=== PATIENT | male | born 1985 | race American Indian/Alaskan Native ===

== ENCOUNTER 2020-07-06 11:21 | Emergency (ER) | payer OTHER ==
[2020-07-06] MEDS ORDERED: Acetaminophen/HYDROcodone 325-7.5 MG Tab PO STA (11:31)
[2020-07-06] MEDS ORDERED: Ketorolac 60 MG/2 ML SDV IM ONE (11:31)
[2020-07-06] MEDS ORDERED: Morphine 4 MG/ML Syringe IVPUSH ONE (11:32)
[2020-07-06] MEDS ORDERED: Ketorolac 30 MG/ML SDV IVPUSH ONE (11:32)
--- NOTE | 2020-07-06 12:02 | CR ---
INDICATION: Pain and SOB. TECHNIQUE: Upright portable AP image of the chest. COMPARISON: None. FINDINGS: Lungs and pleural spaces clear. Heart, mediastinum and pulmonary vessels normal. No significant osseous abnormality. IMPRESSION: Negative chest. Dictated by Dm Henning MD @ 07/06/2020 12:01:[address] Dm Henning @ Jul 06 2020 12:01PM
--- NOTE | 2020-07-06 12:16 | EDM.PDOC ---
ED HPI GENERAL MEDICAL PROBLEM - General Chief Complaint: General Stated Complaint: INJURY TO RIBS Time Seen by Provider: 07/06/20 11:23 Source of Information: Reports: Patient History Limitations: Reports: No Limitations - History of Present Illness INITIAL COMMENTS - FREE TEXT/NARRATIVE: HISTORY AND PHYSICAL: History of present illness: Patient is a 34-year-old male who presents to the ED today with concern of left- sided rib injury that occurred at about 8 this morning. 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 Patient states that the board got hit and popped up from the ground and hit patient in the left sided rib area. Patient states that he "got the wind knocked out of him "and states that he had approximately a minute of feeling like he could not catch his breath. Patient states that since then, he has pain of his left sided rib area that is worse with movement or taking a big deep breath in. Patient states he has a history of prior broken ribs and states that this does feel similar to when he broke his ribs in the past. Patient denies any head injury or loss of consciousness or any other associative symptoms. Patient denies fever, chills, chest pain, shortness of breath, or cough. Denies headache, neck stiff ness, change in vision, syncope, or near syncope. Denies nausea, vomiting, abdominal pain, diarrhea, constipation, or dysuria. Has not noted any blood in urine or stool. Patient has been eating and drinking appropriately. Review of systems: As per history of present illness and below otherwise all systems reviewed and negative. Past medical history: As per history of present illness and as reviewed below otherwise noncontributory. Surgical history: As per history of present illness and as reviewed below otherwise noncontributory. Social history: See social history for further information Family history: As per history of present illness and as reviewed below otherwise noncontributory. Physical exam: General: Patient is alert, oriented, and in no acute distress. Patient sitting comfortably on exam table. Vitals stable and reviewed by me. HEENT: Atraumatic, normocephalic, pupils equal and reactive bilaterally, negative for conjunctival pallor or scleral icterus, mucous membranes moist, TMs normal bilaterally, throat clear, neck supple, nontender, trachea midline. No drooling or trismus noted. No meningeal signs. No hot potato voice noted. Lungs/chest: Patient has moderate to severe pain to palpation of the left-sided anterior ribs #5 through 9. No crepitus to palpation of this area. No ecchymosis or contusions noted. Otherwise, lungs clear to auscultation, breath sounds equal bilaterally, chest nontender. Heart: S1S2, regular rate and rhythm without overt murmur Abdomen: Soft, nondistended, nontender. Negative for masses or hepatosplenomegaly. Negative for costovertebral tenderness. Pelvis: Stable nontender. Genitourinary: Deferred. Rectal: Deferred. Skin: Intact, warm, dry. No lesions or rashes noted. Extremities: Atraumatic, negative for cords or calf pain. Neurovascular unremarkable. Neuro: Awake, alert, oriented. Cranial nerves II through XII unremarkable. Cerebellum unremarkable. Motor and sensory unremarkable throughout. Exam nonfocal. Notes: Upon arrival to the ED, patient is vitally stable and nontoxic on exam. He does have significant tenderness of his left-sided anterior ribs to palpation on exam, although no indications for contusions noted at this time. Patient does have bilateral lung sounds that are equal. Will obtain initial chest x-ray, basic lab work, and CT chest to assess for rib injury/lung contusions. Mild derangements of CBC unremarkable. Corrected calcium on CMP is 7.5. Chest x-ray is unremarkable. Chest CT is unremarkable. No sign of acute injury or disease. Upon reevaluation of patient, he is more comfortable given therapeutics today in the ED and remains vitally stable throughout stay in ED. Discussed with patient today that his lab work shows that his calcium is low. Discussed with patient that he is to take Tums over the next several days and to follow-up with his primary care provider to get this lab redrawn. Signs and symptoms that would prompt return to the ED thoroughly discussed with patient. Discussed importance of follow-up with a primary care provider. Voices understanding and is agreeable to plan of care. Denies any further questions or concerns at this time. Diagnostics: Chest x-ray, CT chest with contrast, CBC, CMP Therapeutics: Toradol, morphine Prescription: None Impression: Left-sided rib injury Hypocalcemia Plan: 1. Take [id number] Tums over the next 2 to 3 days with repeat lab with your primary care provider as discussed. 2. Follow-up with your primary care provider as discussed. 3. You can alternate ibuprofen and Tylenol as directed for pain and discomfort 4 Return to the ED as needed and as discussed. Definitive disposition and diagnosis as appropriate pending reevaluation and review of above. Left Rib Pain Score (Numeric/FACES): 10 - Related Data Allergies Allergy/AdvReac Type Severity Reaction Status Date / Time No Known Allergies Allergy Verified 07/06/20 11:26 Past Medical History - Infectious Disease History Infectious Disease History: Reports: None Social & Family History - Family History Family Medical History: No Pertinent Family History - Tobacco Use Tobacco Use Status *Q: Unknown Ever Used Tobacco ED ROS GENERAL - Review of Systems Review Of Systems: Comprehensive ROS is negative, except as noted in HPI. ED EXAM, GENERAL - Physical Exam Exam: See Below (see dictation) Course - Vital Signs Last Recorded V/S: Last Vital Signs Temp 97.6 F 07/06/20 11:27 Pulse 83 07/06/20 13:45 Resp 17 07/06/20 11:27 BP 120/83 07/06/20 13:45 Pulse Ox 96 07/06/20 13:45 - Orders/Labs/Meds Labs: Laboratory Tests 07/06/20 07/06/20 Range/Units 11:40 11:40 WBC 11.61 H (4.0-11.0) K/uL RBC 5.02 (4.50-5.90) M/uL Hgb 15.9 (13.0-17.0) g/dL Hct 44.9 (38.0-50.0) % MCV 89.4 (80.0-98.0) fL MCH 31.7 (27.0-32.0) pg MCHC 35.4 (31.0-37.0) g/dL RDW Std Deviation 42.5 (28.0-62.0) fl RDW Coeff of Love 13 (11.0-15.0) % Plt Count 170 (150-400) K/uL MPV 11.20 (7.40-12.00) fL Neut % (Auto) 68.8 (48.0-80.0) % Lymph % (Auto) 21.5 (16.0-40.0) % [place] % (Auto) 7.6 (0.0-15.0) % Eos % (Auto) 1.7 (0.0-7.0) % Baso % (Auto) 0.4 (0.0-1.5) % Neut # (Auto) 8.0 H (1.4-5.7) K/uL Lymph # (Auto) 2.5 H (0.6-2.4) K/uL [place] # (Auto) 0.9 H (0.0-0.8) K/uL Eos # (Auto) 0.2 (0.0-0.7) K/uL Baso # (Auto) 0.1 (0.0-0.1) K/uL Nucleated RBC % 0.0 /100WBC Nucleated RBCs # 0 K/uL Sodium 140 (136-148) mmol/L Potassium 4.1 (3.5-5.1) mmol/L Chloride 104 (98-107) mmol/L Carbon Dioxide 29.0 (21.0-32.0) mmol/L BUN 14 (7.0-18.0) mg/dL Creatinine 1.0 (0.8-1.3) mg/dL Est Cr Clr Drug Dosing 86.33 mL/min Estimated GFR (MDRD) > 60.0 ml/min Glucose 90 (74-106) mg/dL Calcium 8.0 L (8.5-10.1) mg/dL Total Bilirubin 0.3 (0.2-1.0) mg/dL AST 20 (15-37) IU/L ALT 32 (14-63) IU/L Alkaline Phosphatase 62 (46-116) U/L Total Protein 7.1 (6.4-8.2) g/dL Albumin 4.0 (3.4-5.0) g/dL Globulin 3.1 (2.6-4.0) g/dL Albumin/Globulin Ratio 1.3 (0.9-1.6) Meds: Medications Discontinued Medications Generic Name Dose Route Start Last Admin Trade Name Freq PRN Reason Stop Dose Admin Hydrocodone Bitart/Acetaminophen 1 tab 07/06/20 11:31 07/06/20 11:57 Acetaminophen/Hydrocodone 325-7.5 Mg Tab PO 07/06/20 11:32 Not Given NOW STA Iopamidol 75 ml 07/06/20 19:27 05/04/21 19:27 Iopamidol 755 Mg/Ml 500 Ml Multipack Bottle IVPUSH 07/06/20 19:28 75 ml ONETIME STA Administration Ketorolac Tromethamine 60 mg 07/06/20 11:31 07/06/20 11:58 Ketorolac 60 Mg/2 Ml Sdv IM 07/06/20 11:32 Not Given ONETIME ONE Ketorolac Tromethamine 30 mg 07/06/20 11:32 07/06/20 11:49 Ketorolac 30 Mg/Ml Sdv IVPUSH 07/06/20 11:33 30 mg ONETIME ONE Administration Morphine Sulfate 4 mg 07/06/20 11:32 07/06/20 11:49 Morphine 4 Mg/Ml Syringe IVPUSH 07/06/20 11:33 4 mg ONETIME ONE Administration Departure - Departure Time of Disposition: 21:52 Disposition: Home, Self-Care 01 Clinical Impression: Rib injury, Hypocalcemia - Discharge Information Instructions: Rib Contusion Referrals: Occupational Health, [Ordering Only Provider] - Forms: ED Department Discharge Additional Instructions: The following information is given to patients seen in the emergency department who are being discharged to home. This information is to outline your options for follow-up care. We provide all patients seen in our emergency department with a follow-up referral. The need for follow-up, as well as the timing and circumstances, are variable depending upon the specifics of your emergency department visit. If you don't have a primary care physician on staff, we will provide you with a referral. We always advise you to contact your personal physician following an emergency department visit to inform them of the circumstance of the visit and for follow-up with them and/or the need for any referrals to a consulting specialist. The emergency department will also refer you to a specialist when appropriate. This referral assures that you have the opportunity for follow-up care with a specialist. All of these measure are taken in an effort to provide you with optimal care, which includes your follow-up. Under all circumstances we always encourage you to contact your private physician who remains a resource for coordinating your care. When calling for follow-up care, please make the office aware that this follow-up is from your recent emergency room visit. If for any reason you are refused follow-up, please contact the [facility] Emergency Department at and asked to speak to the emergency department charge nurse. [facility] [address] [place] [address] [facility] [address] [place] [address] 1. Take [id number] Tums over the next 2 to 3 days with repeat lab with your primary care provider as discussed. 2. Follow-up with your primary care provider as discussed. 3. You can alternate ibuprofen and Tylenol as directed for pain and discomfort 4 Return to the ED as needed and as discussed. Sepsis Event Note (ED) - Evaluation Sepsis Screening Result: No Definite Risk - Focused Exam Vital Signs: Vital Signs Temp Pulse Resp BP Pulse Ox 07/06/20 13:45 83 120/83 96 07/06/20 11:27 97.6 F 99 17 150/101 H 99
[2020-07-06 12:27] LABS: BLOOD UREA NITROGEN,BUN 14 mg/dL (7.0-18.0); CHLORIDE,CL 104 mmol/L (98-107); GLUCOSE RANDOM 90 mg/dL (74-106); POTASSIUM,K 4.1 mmol/L (3.5-5.1); SODIUM,NA 140 mmol/L (136-148)
--- NOTE | 2020-07-06 13:01 | CT ---
INDICATION: Trauma to anterior chest left side. TECHNIQUE: CT chest was acquired with 75 cc Isovue 370 IV contrast. COMPARISON: None. FINDINGS: Lungs and pleural: No suspicious nodules or infiltrates. No pleural effusions, pleural thickening, or pneumothorax. Heart and vasculature: Heart size is normal. Thoracic aorta and pulmonary artery are normal in caliber. Lymph nodes/mediastinum: No mediastinal, hilar, or axillary adenopathy. Thyroid gland is normal. Chest wall: No masses. Upper abdomen: Normal. Bones: Unremarkable for age. IMPRESSION: Unremarkable chest CT. No sign of acute injury or disease. Please note that all CT scans at this facility use dose modulation, iterative reconstruction, and/or weight-based dosing when appropriate to reduce radiation dose to as low as reasonably achievable. Dictated by Tanvir Beatty MD @ 07/06/2020 12:59:[address] Tanvir Beatty @ Jul 06 2020 12:59PM
[2020-07-06] MEDS ORDERED: Iopamidol 755 MG/ML 500 ML Multipack Bottle IVPUSH STA (19:27)
== END 2020-07-06 13:47 | disposition home or self-care (01) ==
LOC: MW.ED 11:21
DX: S29.9XXA Unspecified injury of thorax, initial encounter (principal); E83.51 Hypocalcemia; W22.8XXA Striking against or struck by other objects, initial encounter; Y92.69 Other specified industrial and construction area as the place of occurrence of the external cause; Y99.0 Civilian activity done for income or pay
CPT/HCPCS: 71045; 71260; 80053; 85025; 96374; 96375; 99284; J1885; J2270; Q9967; 99283